=== PATIENT | female | born 1970 | race Caucasian/White ===

== ENCOUNTER 2017-01-26 12:11 | Emergency (ER) | payer SELFPAY ==
[2017-01-26 12:15] VITALS: BP 134/80; PULSE 92; RESP 16; TEMP 98.1; O2SAT 100
--- NOTE | 2017-01-26 12:16 | PD ---
Physical Exam Date Seen by Provider: Jan 26, 2017 Time Seen by Provider: 12:13 [facility] Supervised Visit with [facility]: No Narrative Course 46 YO F with complaint of 9/10 sharp epigastric pain since yesterday. +anorexia, nausea, chills. Hx tubal ligation. LMP 01/07 Vitals reviewed. Patient seen in triage. Awaiting bed placement. Liliana Rey Jan 26, 2017 12:16
[2017-01-26 12:25] VITALS: O2SAT 99
[2017-01-26] MEDS ORDERED: SODIUM CHLOR 0.9% 1000 ML INJ 1,000 ML IV SCH (12:55)
[2017-01-26] MEDS ORDERED: FAMOTIDINE 20 MG/2 ML VIAL IV PUSH ONE (13:00)
[2017-01-26] MEDS ORDERED: ALUMINUM/MAGNESIUM/SIMETH 30 ML CUP PO ONE (13:00)
[2017-01-26] MEDS ORDERED: ONDANSETRON HCL 4 MG/2 ML VIAL IVP ONE (13:00)
[2017-01-26] MEDS ORDERED: SODIUM CHLORIDE 0.9% FLUSH 10 ML FLUSH IV FLUSH PRN (13:00)
[2017-01-26] MEDS ORDERED: MORPHINE SULFATE 4 MG/ML INJ IV PUSH ONE ×2 (13:00→14:15)
[2017-01-26] MEDS ORDERED: LIDOCAINE VISCOUS 2% SOLN 15 ML UDC PO ONE (13:00)
[2017-01-26 13:33] LABS: BASOPHIL # 0.1 TH/MM3 (0-0.2); BASOPHIL % 0.9 % (0.0-2.0); EOSINOPHIL # 0.1 TH/MM3 (0-0.4); EOSINOPHIL % 0.6 % (0.0-4.0); HEMATOCRIT 43.1 % (35.0-46.0); HEMO FLAGS DIFF FINAL; LYMPH % 33.8 % (9.0-44.0); MEAN CELL VOLUME 93.1 FL (80.0-100.0); MEAN CORPUSCULAR HEMOGLOBIN 30.7 PG (27.0-34.0); MEAN CORPUSCULAR HGB CONC 32.9 % (32.0-36.0); MONO % 5.5 % (0.0-8.0); NEUT % 59.2 % (16.0-70.0); PLATELET COUNT 205 TH/MM3 (150-450); RED BLOOD COUNT 4.62 MIL/MM3 (4.00-5.30); RED CELL DISTRIBUTION WIDTH 13.8 % (11.6-17.2); WHITE BLOOD COUNT 11.8 TH/MM3 (4.0-11.0)
--- NOTE | 2017-01-26 13:35 | PD ---
HPI Chief Complaint: GI Complaint Time Seen by Provider: 12:26 Travel History International Travel<30 days: No Contact w/Intl Traveler<30days: No Traveled to known affect area: No History of Present Illness HPI The patient is a 46-year-old female who presents to the emergency department for epigastric abdominal pain. The patient developed abdominal pain yesterday morning approximately 10:30 AM. The epigastric abdominal pain radiates to the back and is associated with mild nausea. The patient denies any vomiting, diarrhea, or lower abdominal pain. The patient denies any history of gastritis, peptic ulcer disease, biliary colic, gallstones, pancreatitis, or previous abdominal surgeries except for tubal ligation. The patient denies any associated dysuria, frequency, urgency, or hematuria. The patient's symptoms are moderate, there are no current alleviating or exacerbating factors. She does note decreased oral intake secondary to persistent epigastric abdominal pain. The patient denies any chronic alcohol use or chronic nonsteroidal anti-inflammatory use. PFSH Past Medical History Medical History: Denies Significant Hx Diminished Hearing: No ?: Not LMP: 01/07/17 Tubal Ligation: Yes (1995) Past Surgical History Surgical History: No Previous Surgery Social History Alcohol Use: Yes (occ) Tobacco Use: Yes (06/25 ppd ) Substance Use: Yes (marijuana) Allergies-Medications (Allergen,Severity, Reaction): Coded Allergies: Penicillin (Verified Allergy, Unknown, 01/26/17) Tetracycline (Verified Allergy, Unknown, 01/26/17) Tylenol (Verified Allergy, Unknown, 01/26/17) Reported Meds & Prescriptions Reported Meds & Active Scripts Active No Active Prescriptions or Reported Medications Review of Systems Except as stated in HPI: all other systems reviewed are Neg General / Constitutional: No: Fever Cardiovascular: No: Chest Pain or Discomfort Respiratory: No: Shortness of Breath Gastrointestinal: Positive: Nausea, Abdominal Pain, Loss of Appetite, No: Vomiting, Diarrhea, Constipation, Changes in Bowel Habits Genitourinary: No: Urgency, Frequency, Dysuria, Hematuria Physical Exam Narrative GENERAL: Awake, alert, very pleasant 46-year-old female who appears her stated age and is in no acute respiratory distress. SKIN: Focused skin assessment warm/dry. HEAD: Atraumatic. Normocephalic. EYES: Pupils equal and round. No scleral icterus. No injection or drainage. ENT: No nasal bleeding or discharge. Slightly dry mucous membranes. NECK: Trachea midline. No JVD. CARDIOVASCULAR: Regular rate and rhythm. No murmur appreciated. Heart rate in the 90s. RESPIRATORY: No accessory muscle use. Clear to auscultation. Breath sounds equal bilaterally. GASTROINTESTINAL: Abdomen soft, epigastric tenderness. Negative Steen's. Negative McBurney's. No rebound tenderness. Back: No CVA tenderness. MUSCULOSKELETAL: No obvious deformities. No clubbing. No cyanosis. No edema. NEUROLOGICAL: Awake and alert. No obvious cranial nerve deficits. Motor grossly within normal limits. Normal speech. PSYCHIATRIC: Appropriate mood and affect; insight and judgment normal. Data Data Last Documented VS Vital Signs Date Time Temp Pulse Resp B/P Pulse Ox O2 Delivery O2 Flow Rate FiO2 01/26/17 12:25 99 Room Air 01/26/17 12:23 17 01/26/17 12:15 98.1 92 134/80 Orders Complete Blood Count With Diff (01/26/17 12:55) Comprehensive Metabolic Panel (01/26/17 12:55) Lipase (01/26/17 12:55) Urinalysis - C+S If Indicated (01/26/17 12:55) Iv Access Insert/Monitor (01/26/17 12:55) Ecg Monitoring (01/26/17 12:55) Oximetry (01/26/17 12:55) Morphine Inj (Morphine Inj) (01/26/17 13:00) Ondansetron Inj (Zofran Inj) (01/26/17 13:00) Sodium Chlor 0.9% 1000 Ml Inj (Ns 1000 M (01/26/17 12:55) Sodium Chloride 0.9% Flush (Ns Flush) (01/26/17 13:00) Famotidine Inj (Pepcid Inj) (01/26/17 13:00) Al-Mag Hy-Si 40-40-4 Mg/Ml Liq (Mag-Al P (01/26/17 13:00) Lidocaine 2% Viscous (Xylocaine 2% Visco (01/26/17 13:00) Ed Urine Pregnancytest Poc (01/26/17 12:55) Morphine Inj (Morphine Inj) (01/26/17 14:15) Labs Laboratory Tests Test 01/26/17 13:10 White Blood Count 11.8 TH/MM3 Red Blood Count 4.62 MIL/MM3 Hemoglobin 14.2 GM/DL Hematocrit 43.1 % Mean Corpuscular Volume 93.1 FL Mean Corpuscular Hemoglobin 30.7 PG Mean Corpuscular Hemoglobin 32.9 % Concent Red Cell Distribution Width 13.8 % Platelet Count 205 TH/MM3 Mean Platelet Volume 9.7 FL Neutrophils (%) (Auto) 59.2 % Lymphocytes (%) (Auto) 33.8 % Monocytes (%) (Auto) 5.5 % Eosinophils (%) (Auto) 0.6 % Basophils (%) (Auto) 0.9 % Neutrophils # (Auto) 7.0 TH/MM3 Lymphocytes # (Auto) 4.0 TH/MM3 Monocytes # (Auto) 0.6 TH/MM3 Eosinophils # (Auto) 0.1 TH/MM3 Basophils # (Auto) 0.1 TH/MM3 CBC Comment DIFF FINAL Differential Comment Urine Color YELLOW Urine Turbidity HAZY Urine pH 5.5 Urine Specific [place] 1.030 Urine Protein TRACE mg/dL Urine Glucose (UA) NEG mg/dL Urine Ketones TRACE mg/dL Urine Occult Blood NEG Urine Nitrite NEG Urine Bilirubin NEG Urine Urobilinogen LESS THAN 2.0 MG/DL Urine Leukocyte Esterase NEG Urine RBC 3 /hpf Urine WBC 1 /hpf Urine Squamous Epithelial 29 /hpf Cells Urine Amorphous Sediment RARE Urine Bacteria RARE /hpf Urine Mucus FEW /lpf Microscopic Urinalysis Comment CULT NOT INDICATED Sodium Level 137 MEQ/L Potassium Level 3.9 MEQ/L Chloride Level 105 MEQ/L Carbon Dioxide Level 23.9 MEQ/L Anion Gap 8 MEQ/L Blood Urea Nitrogen 17 MG/DL Creatinine 0.75 MG/DL Estimat Glomerular Filtration 84 ML/MIN Rate Random Glucose 94 MG/DL Calcium Level 8.6 MG/DL Total Bilirubin 0.3 MG/DL Aspartate Amino Transf 15 U/L (AST/SGOT) Alanine Aminotransferase 18 U/L (ALT/SGPT) Alkaline Phosphatase 66 U/L Total Protein 7.8 GM/DL Albumin 3.9 GM/DL Lipase 241 U/L [facility] Medical Decision Making Medical Screen Exam Complete: Yes Emergency Medical Condition: Yes Medical Record Reviewed: Yes Interpretation(s) Laboratory Tests Test 01/26/17 13:10 White Blood Count 11.8 TH/MM3 Red Blood Count 4.62 MIL/MM3 Hemoglobin 14.2 GM/DL Hematocrit 43.1 % Mean Corpuscular Volume 93.1 FL Mean Corpuscular Hemoglobin 30.7 PG Mean Corpuscular Hemoglobin 32.9 % Concent Red Cell Distribution Width 13.8 % Platelet Count 205 TH/MM3 Mean Platelet Volume 9.7 FL Neutrophils (%) (Auto) 59.2 % Lymphocytes (%) (Auto) 33.8 % Monocytes (%) (Auto) 5.5 % Eosinophils (%) (Auto) 0.6 % Basophils (%) (Auto) 0.9 % Neutrophils # (Auto) 7.0 TH/MM3 Lymphocytes # (Auto) 4.0 TH/MM3 Monocytes # (Auto) 0.6 TH/MM3 Eosinophils # (Auto) 0.1 TH/MM3 Basophils # (Auto) 0.1 TH/MM3 CBC Comment DIFF FINAL Differential Comment Urine Color YELLOW Urine Turbidity HAZY Urine pH 5.5 Urine Specific [place] 1.030 Urine Protein TRACE mg/dL Urine Glucose (UA) NEG mg/dL Urine Ketones TRACE mg/dL Urine Occult Blood NEG Urine Nitrite NEG Urine Bilirubin NEG Urine Urobilinogen LESS THAN 2.0 MG/DL Urine Leukocyte Esterase NEG Urine RBC 3 /hpf Urine WBC 1 /hpf Urine Squamous Epithelial 29 /hpf Cells Urine Amorphous Sediment RARE Urine Bacteria RARE /hpf Urine Mucus FEW /lpf Microscopic Urinalysis Comment CULT NOT INDICATED Sodium Level 137 MEQ/L Potassium Level 3.9 MEQ/L Chloride Level 105 MEQ/L Carbon Dioxide Level 23.9 MEQ/L Anion Gap 8 MEQ/L Blood Urea Nitrogen 17 MG/DL Creatinine 0.75 MG/DL Estimat Glomerular Filtration 84 ML/MIN Rate Random Glucose 94 MG/DL Calcium Level 8.6 MG/DL Total Bilirubin 0.3 MG/DL Aspartate Amino Transf 15 U/L (AST/SGOT) Alanine Aminotransferase 18 U/L (ALT/SGPT) Alkaline Phosphatase 66 U/L Total Protein 7.8 GM/DL Albumin 3.9 GM/DL Lipase 241 U/L Differential Diagnosis Differential diagnosis includes gastritis, peptic ulcer disease, pancreatitis, biliary colic, cholecystitis, GERD. Narrative Course IV was established, labs are drawn and sent, and the patient was placed on cardiac telemetry monitoring and continuous pulse oximetry monitoring. The patient was administered morphine, Zofran, Pepcid, GI cocktail, and IV fluids. UA was sent to lab. Bedside UA test was obtained, was negative. White count is mildly elevated 11.8. Lipase is within normal limits. LFTs are within normal limits. UA reveals trace ketones, otherwise unremarkable. The patient was reevaluated at 2 PM. The patient still had some epigastric burning pain, therefore, was redosed with pain medications. She will be discharged home on Protonix, is advised to avoid nonsteroidal anti-inflammatories. As she is allergic to Tylenol I will write for a few oxycodone. She will be provided a copy of her labs at discharge. She is advised to follow-up with her primary physician and if symptoms persist follow-up with gastroenterology for outpatient EGD. The patient agrees and understands. Diagnosis Primary Impression: Gastritis Qualified Code: K29.00 - Acute gastritis, presence of bleeding unspecified, unspecified gastritis type Additional Impression: Epigastric abdominal pain Patient Instructions: General Instructions Additional Instructions: Medications as directed. Please provide the patient a copy of her labs at discharge. Follow-up with her primary physician and gastroenterology if symptoms persist for possible outpatient EGD. Med/Other Pt SpecificInfo: Prescription(s) given Scripts Oxycodone 5 Mg Cap5 Mg PO Q6H PRN (PAIN) #12 CAP Ref 0 Prov:Jimmie Noriega MD 01/26/17 Pantoprazole (Protonix)40 Mg Tab40 Mg PO DAILY #30 TAB Ref 0 Prov:Jimmie Noriega MD 01/26/17 Disposition: 01 DISCHARGE HOME Condition: Stable Jimmie Noriega MD Jan 26, 2017 13:35
[2017-01-26 13:43] LABS: BACTERIA, URINE RARE /hpf; BLOOD, URINE NEG (NEG); COMMENT (UR) CULT NOT INDICATED; CULTURE IF INDICATED CULT NOT INDICATED; GLUCOSE,URINE NEG (NEG); KETONE, URINE TRACE mg/dL (NEG); MUCUS URINE FEW /lpf (OCC); NITRITE,URINE NEG (NEG); PH, URINE 5.5 (5.0-8.5); SQUAMOUS EPITHELIAL CELL URINE 29 /hpf (0-5); URINE COLOR YELLOW (YELLW/STRAW)
[2017-01-26 13:48] LABS: ANION GAP 8 MEQ/L (5-15); AST (GOT) 15 U/L (15-37); BICARBONATE 23.9 MEQ/L (21.0-32.0); BLOOD UREA NITROGEN 17 MG/DL (7-18); CHLORIDE 105 MEQ/L (98-107); GLOMERULAR FILTRATION RATE 84 ML/MIN (>89); POTASSIUM 3.9 MEQ/L (3.5-5.1); SODIUM (NA) 137 MEQ/L (136-145)
[2017-01-26 13:49] LABS: ALT (GPT) 18 U/L (10-53)
[2017-01-26 13:51] LABS: ALKALINE PHOSPHATASE 66 U/L (45-117); TOTAL BILIRUBIN ADULT 0.3 MG/DL (0.2-1.0)
[2017-01-26] MEDS ORDERED: OXYC1CAP PO (14:08)
[2017-01-26] MEDS ORDERED: PROT40TA PO (14:08)
[2017-01-26 14:49] VITALS: BP 128/74
== END 2017-01-26 14:58 | disposition home or self-care (01) ==
LOC: NEPC 12:11
DX: K29.00 Acute gastritis without bleeding (principal); F10.10 Alcohol abuse, uncomplicated; F17.290 Nicotine dependence, other tobacco product, uncomplicated; F12.10 Cannabis abuse, uncomplicated
CPT/HCPCS: 80053; 81001; 83690; 84703; 85025; 96374; 96375; 96376; 99284; J2270; J2405; J7030

== ENCOUNTER 2017-01-27 20:29 | Emergency (ER) | payer SELFPAY ==
[~2017-01-27] VITALS: Ht 167.6 cm; Wt 75.0 kg
[~2017-01-27 20:29] MED LIST: OXYC1CAP PO; PROT40TA PO
[2017-01-27 20:31] VITALS: BP 163/80; PULSE 99; RESP 16; TEMP 98; O2SAT 100
--- NOTE | 2017-01-27 21:13 | PD ---
HPI . RUQ pain since yesterday Chief Complaint: Abdominal Pain Time Seen by Provider: 21:13 Travel History International Travel<30 days: No Contact w/Intl Traveler<30days: No Traveled to known affect area: No History of Present Illness HPI 46-year-old female with no significant past medical history, who was recently seen in the emergency department yesterday and diagnosed with gastritis here with complaints of pain now in her right upper quadrant. Patient says that she was seen yesterday and given Protonix and oxycodone. She tells me that her pain is now worse than it was yesterday. She admits to nausea, but denies any actual vomiting. She tells me that she is not eating. She has taken oxycodone , without relief. She is now complaining of severe pain in her right upper quadrant. She feels like the pain as wrapping around to her back. She denies any diarrhea or constipation. She also denies any chest pain, vomiting or diaphoresis. She is accompanied by a friend. PFSH Past Medical History Diminished Hearing: No Tubal Ligation: Yes (1995) Social History Alcohol Use: Yes (occ) Tobacco Use: Yes (06/25 ppd ) Substance Use: Yes (marijuana) Allergies-Medications (Allergen,Severity, Reaction): Coded Allergies: Penicillin (Verified Allergy, Unknown, 01/27/17) Tetracycline (Verified Allergy, Unknown, 01/27/17) Tylenol (Verified Allergy, Unknown, 01/27/17) Reported Meds & Prescriptions Reported Meds & Active Scripts Active Oxycodone (Oxycodone HCl) 5 Mg Cap 5 Mg PO Q6H PRN Protonix (Pantoprazole Sodium) 40 Mg Tab 40 Mg PO DAILY Review of Systems General / Constitutional: No: Fever Eyes: No: Visual changes HENT: No: Headaches Cardiovascular: No: Chest Pain or Discomfort Respiratory: No: Shortness of Breath Gastrointestinal: Positive: Abdominal Pain (RUQ) Genitourinary: No: Dysuria Musculoskeletal: No: Pain Skin: No Rash Neurologic: No: Weakness Psychiatric: No: Depression Endocrine: No: Polydipsia Hematologic/Lymphatic: No: Easy Bruising Physical Exam Narrative GENERAL: AAO x 3, no acute distress, Well-nourished, well-developed patient. SKIN: Warm and dry. No visible rashes or bruising. HEAD: Normocephalic and atraumatic. EYES: No scleral icterus. No injection or drainage. EOM intact ENT: No nasal drainage noted. Mucous membranes pink. Airway patent. NECK: Supple, trachea midline. No JVD. CARDIOVASCULAR: Regular rate and rhythm without murmurs, gallops, or rubs. RESPIRATORY: Breath sounds equal bilaterally. No accessory muscle use. No rhonchi or rales. GASTROINTESTINAL: Abdomen soft nondistended. Normoactive bowel sound. Tenderness to the right upper quadrant with light palpation. Positive Steen sign. EXTREMITIES: No cyanosis or edema. BACK: No obvious deformity. No CVA tenderness. NEURO: CN II-12 intact, stock grader strength normal b/l, UE and LE 5/5, no focal deficits PSYCH: AAO x 3, normal affect. Data Data Last Documented VS Vital Signs Date Time Temp Pulse Resp B/P Pulse Ox O2 Delivery O2 Flow Rate FiO2 01/27/17 20:31 98.0 99 16 163/80 100 Room Air Orders Us Abdomen Gallbladder (01/27/17 21:17) MDM Medical Decision Making Medical Screen Exam Complete: Yes Emergency Medical Condition: Yes Medical Record Reviewed: Yes Differential Diagnosis Cholecystitis, cholelithiasis, less likely pancreatitis Narrative Course 46-year-old female who was here yesterday with complaints of abdominal pain with a negative workup here with complaints of right upper quadrant pain. On examination patient with a positive Steen sign. Ultrasound of the abdomen ordered. Last Impressions Gall Bladder Ultrasound 01/27/172116 Signed Impressions: Service Date/Time: Friday, January 27, 2017 22:04 - CONCLUSION: Positive sonographic Steen sign. However, no gallbladder wall thickening or gallstones. No biliary ductal dilatation. Arnol Castano MD Discussed normal results with patient. Recommend f/u with pcp and GI. continue protonix. Patient requesting a note to be excused from work Mon_Thurs. I explained that this is something I could not do and she needs to see her PCP. Diagnosis Primary Impression: RUQ pain Referrals: [facility] Patient Instructions: General Instructions Departure Forms: Tests/Procedures, Work Release Enter return to work date: Jan 28, 2017 Additional Instructions: Please return to emergency department if your symptoms return or worsen. Follow up with your primary care provider. Take medications as prescribed. Med/Other Pt SpecificInfo: No Change to Meds Disposition: 01 DISCHARGE HOME Condition: Stable Kayleen Mcdonald Jan 27, 2017 21:13
--- NOTE | 2017-01-27 22:36 | RADRPT ---
EXAM DATE/TIME: 01/27/2017 22:04 [facility] COMPARISON: No previous studies available for comparison. INDICATIONS : Right upper quadrant pain. MEDICAL HISTORY : Right upper quadrant pain. Substance use. Alcohol use. Tobacco use. SURGICAL HISTORY : Tubal ligation. ENCOUNTER: Initial ACUITY: 2 days PAIN SCORE: 10/10 LOCATION: Right upper quadrant MEASUREMENTS: LIVER: 14.4 cm length COMMON DUCT: 2 mm RIGHT KIDNEY: 10.7 x 5.4 x 4.5 cm FINDINGS: LIVER: Normal echotexture without focal lesion or ductal dilatation. COMMON DUCT: No intraluminal mass or stone visualized. GALLBLADDER: Contains no stones, demonstrates no wall thickening or pericholecystic fluid. PANCREAS: The visualized portions are within normal limits. RIGHT KIDNEY: No evidence of hydronephrosis, stone, or mass. CONCLUSION: Positive sonographic Steen sign. However, no gallbladder wall thickening or gallstones. No biliary d uctal dilatation. Arnol Castano MD on January 27, 2017 at 22:31 Board Certified Radiologist. This report was verified electronically.
== END 2017-01-27 23:27 | disposition home or self-care (01) ==
LOC: NEPE 20:29
DX: R10.11 Right upper quadrant pain (principal); F17.210 Nicotine dependence, cigarettes, uncomplicated; Z88.0 Allergy status to penicillin
CPT/HCPCS: 76705; 99284